=== PATIENT | male | born 1945 | race African-American/Black ===

== ENCOUNTER 2018-08-19 20:02 | Emergency (ER) | payer OTHER ==
[~2018-08-19] VITALS: Ht 157.5 cm; Wt 46.7 kg
[~2018-08-19 20:02] MED LIST: ACYCLOVIR 400400 MG PO; ADULT LOW DOSE81 MG PO; ALENDRONATE SOD70 MG; ALENDRONATE SODIUM PO; ALLOPURINOL 30300 M1 PO; ANASPAZ0.125 MG SL; APAP500 PO; APAP650 PO; ARICEPT 5 MG TAB5 MG PO; ARTIFICIAL TEAR15 M1 OPHTHALMIC; BACTRIM DS TAB1 EACH PO; BELLADONNA-OPI1 EACH; BENTYL20 MG PO; CARBIDOPA-LEVO1 EAC2 PO; CARBIDOPA-LEVO1 EAC6 PO; CARISOPRODOL 3350 MG PO; CEFTAZIDIME IV; CEFUROXIME500 MG PO; CIPRO500 MG PO; CIPROFLOXACIN500 M1 PO; CLONAZEPAM 0.50.5 M1 PO; CLONAZEPAM 1 MG1 M1 PO; CLONAZEPAM PO; COLACE100 MG PO; COMPAZINE10 MG PO; COQ1050 MG PO; COUMADIN 2 MG TA2 M1 PO; COUMADIN 3 MG TA3 M1 PO; COUMADIN 5 MG TA5 M1 PO; COUMADIN6 MG PO; D3 + K2 DOTS 11 EACH PO; DEXAMETHASONE 44 M1 PO; DEXAMETHASONE4 MG PO; DIAZEPAM 10 MG10 M1 PO; DOLOPHINE HCL10 MG PO; DOLOPHINE HCL5 MG PO; DULCOLAX5 MG PO; DURAGESIC1 EAC2 TRANSDERM; ENOXAPARIN40 MG/0.1 SUBQ; ENOXAPARIN80 MG/0.1 INJECTION; ENOXAPARIN80 MG/0.8 SQ; EX-LAX15 M1 PO; FERREX 150 PLU1 EAC1 PO; FIBERCON625 M1 PO; FLEXERIL PO; FOSAMAX 70 MG T70 MG PO; FUROSEMIDE 20 M20 MG PO; HEMORRHOIDAL HC25 MG RC; HYDROCODONE-AP1 EAC6 PO; HYOSCYAMINE0.375 MG; IPRAT-ALBUT 0.5-3 ML INH; KEFLEX500 M1 PO; KEFLEX500 MG PO; KLOR-CON 1010 MEQ PO; LASIX 20 MG TAB20 MG PO; LEVAQUIN 500 M500 MG PO; LEVSIN0.125 MG PO; LEXAPRO 10 MG T10 M1 PO; LEXAPRO 10 MG T10 M2 PO; LIDOCAINE HCL 210 M1 TOP; MACROBID 100 M100 M1 PO; MAXIPIME 2 GM AD2 GM IV; MELATIN3 MG; METHADONE HCL 110 M1 PO; MIRALAX255 GM PO; NEBULIZER MISCELL; NEURONTIN 300300 M1 PO; NITROGLYCERIN0.4 MG SL; NORCO 5-325 TA1 EACH PO; OMEPRAZOLE40 MG PO; ONDANSETRON HCL4 M2 PO; ONDANSETRON ODT8 MG PO; OXYBUTYNIN 5 MG5 M2 PO; PAMIDRONATE; PERCOCET 5-3251 EACH PO; PHENAZOPYRIDIN200 M2; PREDNISONE 10 M10 MG PO; PRILOSEC40 MG PO; PROCHLORPERAZIN10 MG PO; PROCTOCREAM-HC30 G1 RC; PYRIDIUM200 MG PO; REFRESH CELLUVI1 APP OPHTHALMIC; REFRESH CLASSI1 EACH OPHTHALMIC; REQUIP3 MG PO; REVLIMID25 MG PO; ROBAXIN 750 MG750 M1 PO; SEROQUEL 25 MG25 M1 PO; SINEMET 25-1001 EAC1 PO; SINEMET CR 50/21 TAB PO; TAMSULOSIN HCL0.4 M1 PO; TRAZODONE HCL50 MG PO; TRIHEXYPHENIDYL2 M2 NG; TRIHEXYPHENIDYL2 M2 PO; TUMS PO; URIBEL CAPSULE1 EACH PO; VALIUM2 MG PO; VITAMIN B-2100 MG PO; VITAMIN D1000 UNI1 PO; VITAMIN D250000 UNIT PO; VITAMIN D31000 UNI2; VITAMIN D31000 UNI2 PO; WARFARIN PO; ZANAFLEX4 M1; ZANTAC 150MG T150 MG PO; ZOLPIDEM TART12.5 MG PO; ZONISAMIDE 100100 M1 PO; [UNRECOGNIZED DRUG - REMARK]
[2018-08-19 21:06] LABS: ABSOLUTE NEUTROPHILS 3.4 thou/uL (1.4-8.2); BASOPHILS 0.9 % (0.0-2.0); EOSINOPHILS 1.9 % (0.0-3.0); HEMATOCRIT 24.7 % (42.0-52.0); HEMOGLOBIN 8.2 gm/dL (14.0-18.0); LYMPHOCYTES 19.3 % (24.0-44.0); MCH 34.4 pg (26.0-34.0); MCHC 33.4 g/dL (28.0-37.0); MCV 103.2 fL (80.0-100.0); PLATELET COUNT 353 thou/uL (150-400); POLYS 70.9 % (36.0-66.0); RBC 2.39 mil/uL (4.50-6.00); WBC 4.8 thou/uL (4.0-11.0)
[2018-08-19] MEDS ORDERED: SEROQUEL 25 MG25 M1 PO (21:06)
[2018-08-19] MEDS ORDERED: COUMADIN 5 MG TA5 M1 PO (21:06)
[2018-08-19 21:16] LABS: ANION GAP 8 mmol/L (7-16); BUN 26 mg/dL (7-18); CALCIUM 8.7 mg/dL (8.5-10.1); CHLORIDE 104 mmol/L (98-107); CO2 26 mmol/L (21-32); CREATININE 2.2 mg/dL (0.7-1.3); GLUCOSE 110 mg/dL (74-106); POTASSIUM 5.3 mmol/L (3.5-5.1); SODIUM 138 mmol/L (136-145)
[2018-08-19 21:22] LABS: ALBUMIN 2.9 g/dL (3.4-5.0); DIRECT BILIRUBIN < 0.1 mg/dL (<0.1-0.3); LIPASE 45 U/L (73-393); SGOT 13 U/L (15-37); SGPT 7 U/L (30-65); TOTAL BILIRUBIN 0.1 mg/dL (<0.1-1.0); TOTAL PROTEIN 9.2 g/dL (6.4-8.2)
[2018-08-19 21:27] LABS: URINE BILIRUBIN NEGATIVE (Negative); URINE BLOOD 2+ (Negative); URINE CLARITY CLOUDY; URINE COLOR YELLOW; URINE GLUCOSE-RANDOM* NEGATIVE (Negative); URINE KETONES NEGATIVE (Negative); URINE LEUKOCYTES 2+ (Negative); URINE NITRITE POSITIVE (Negative); URINE PROTEIN (DIPSTICK) 2+ (Negative); URINE SPECIFIC GRAVITY >= 1.030 (1.005-1.035); URINE UROBILINOGEN 0.2 E.U./dl (0.2-1.0)
[2018-08-19 21:37] LABS: HYALINE CASTS 0-3 Few /LPF (None Seen); MUCUS 0-3 Light strn/LPF (None Seen); SQUAMOUS 0-3 Few /LPF (0-3)
[2018-08-19 21:38] LABS: BACTERIA >30 Many /HPF (None Seen); CRYSTALS None Seen /LPF (None Seen); TRANSITIONAL EPITHEL CELL 0-3 Few /LPF (None Seen); URINE RBC 3-10 Few /HPF (0-2); URINE WBC >25 Many /HPF (0-5)
[2018-08-19] MEDS ORDERED: KEFLEX500 M1 PO (21:55)
[2018-08-19 22:56] VITALS: BP 143/72
== END 2018-08-19 22:58 | disposition home or self-care (01) ==
LOC: ER 20:02
PROVIDERS: Nurse Practitioner
DX: G89.29 Other chronic pain (principal); M25.551 Pain in right hip; M25.552 Pain in left hip; R07.81 Pleurodynia; G20 Parkinson's disease; M81.0 Age-related osteoporosis without current pathological fracture; G47.30 Sleep apnea, unspecified; Z86.718 Personal history of other venous thrombosis and embolism; Z86.711 Personal history of pulmonary embolism; Z85.79 Personal history of other malignant neoplasms of lymphoid, hematopoietic and related tissues; Z89.022 Acquired absence of left finger(s); Z88.0 Allergy status to penicillin; Z91.040 Latex allergy status

== ENCOUNTER 2018-10-19 10:05 | Emergency (ER) | payer OTHER ==
[~2018-10-19] VITALS: Ht 157.5 cm; Wt 54.4 kg
[2018-10-19 11:00] LABS: CALCIUM 9.2 mg/dL (8.5-10.1); CREATININE 1.7 mg/dL (0.7-1.3); POTASSIUM 5.4 mmol/L (3.5-5.1)
[2018-10-19 11:04] LABS: HEMATOCRIT 25.4 % (42.0-52.0); HEMOGLOBIN 8.4 gm/dL (14.0-18.0); MCH 33.9 pg (26.0-34.0); MCHC 32.9 g/dL (28.0-37.0); PLATELET COUNT 299 thou/uL (150-400); RBC 2.46 mil/uL (4.50-6.00); WBC 2.3 thou/uL (4.0-11.0)
[2018-10-19 11:06] LABS: TOTAL BILIRUBIN 0.1 mg/dL (<0.1-1.0); TOTAL PROTEIN 9.5 g/dL (6.4-8.2)
[2018-10-19 11:46] LABS: INR 1.7; PROTIME 17.9 Seconds (9.3-11.4)
[2018-10-19 11:48] LABS: ABSOLUTE NEUTROPHILS 1.3 thou/uL (1.4-8.2); PLATELET ESTIMATE NORMAL
[2018-10-19 12:10] VITALS: BP 110/44
--- NOTE | 2018-10-19 13:48 | EKG ---
[place] [address] [facility] [place] [address] ELECTROCARDIOGRAM REPORT Name: ASHWINI BAUM ALFREDO [id number] Admission: 10/19/18 Attend Phys: Discharge: 10/19/18 Date of : 43 Report #: [id number] THIS REPORT FOR: //name// [facility] ED Test Date: 2018-10-19 Test Time: 12:31:02 Pat Name: ASHWINI BAUM Department: Room: Gender: Expander: jlambertz : 1945 Requested By: Tracy Nunez Order Number: [id number] MD: Rocael Estrella Measurements Intervals [place] Rate: 52 P: 23 MA: 156 QRS: 15 QRSD: 115 T: 49 QT: 434 QTc: 404 Interpretive Statements Sinus rhythm Nonspecific intraventricular conduction delay Low voltage, extremity leads Artifact in lead(s) I,III,aVR,aVL,aVF,V1,V2 No previous ECG available for comparison Electronically Signed On 10-19-2018 13:48:38 CDT by Rocael Estrella [email or web address] <ELECTRONICALLY SIGNED> By: Rocael Estrella MD 10/19/18 1348 123 123 Rocael Estrella MD /RANDAL
== END 2018-10-19 12:10 | disposition home or self-care (01) ==
LOC: ER 10:05
PROVIDERS: Emergency Medicine; Nurse Practitioner Family
DX: E87.5 Hyperkalemia (principal); R79.1 Abnormal coagulation profile; N18.3 Chronic kidney disease, stage 3 (moderate); F32.9 Major depressive disorder, single episode, unspecified; F41.9 Anxiety disorder, unspecified; G20 Parkinson's disease; M81.0 Age-related osteoporosis without current pathological fracture; G47.30 Sleep apnea, unspecified; G89.29 Other chronic pain; M54.9 Dorsalgia, unspecified; Z90.79 Acquired absence of other genital organ(s); Z85.79 Personal history of other malignant neoplasms of lymphoid, hematopoietic and related tissues; Z98.890 Other specified postprocedural states; Z86.718 Personal history of other venous thrombosis and embolism; Z86.711 Personal history of pulmonary embolism; Z89.022 Acquired absence of left finger(s); Z88.0 Allergy status to penicillin; Z91.040 Latex allergy status

== ENCOUNTER 2018-11-16 17:28 | Emergency (ER) | payer OTHER ==
[~2018-11-16] VITALS: Ht 162.6 cm; Wt 49.9 kg
[2018-11-16 17:52] LABS: ABSOLUTE NEUTROPHILS 2.9 thou/uL (1.4-8.2); BASOPHILS 0.5 % (0.0-2.0); EOSINOPHILS 3.7 % (0.0-3.0); HEMATOCRIT 25.4 % (42.0-52.0); HEMOGLOBIN 8.3 gm/dL (14.0-18.0); LYMPHOCYTES 21.8 % (24.0-44.0); MCHC 32.7 g/dL (28.0-37.0); MCV 104.2 fL (80.0-100.0); MONOCYTES 8.5 % (1.0-8.0); PLATELET COUNT 354 thou/uL (150-400); POLYS 65.5 % (36.0-66.0); RBC 2.44 mil/uL (4.50-6.00); RDW 15.9 % (10.5-14.5); WBC 4.4 thou/uL (4.0-11.0)
[2018-11-16 17:55] LABS: ANION GAP 7 mmol/L (7-16); BUN 27 mg/dL (7-18); CHLORIDE 103 mmol/L (98-107); CO2 26 mmol/L (21-32); CREATININE 1.8 mg/dL (0.7-1.3); GLUCOSE 124 mg/dL (74-106); POTASSIUM 4.7 mmol/L (3.5-5.1); SODIUM 136 mmol/L (136-145)
[2018-11-16 18:01] LABS: ALBUMIN 2.8 g/dL (3.4-5.0); SGOT 16 U/L (15-37); TOTAL BILIRUBIN 0.1 mg/dL (<0.1-1.0)
[2018-11-16 18:11] LABS: SGPT < 6 U/L (30-65)
[2018-11-16] MEDS ORDERED: LIDOCAINE1 EACH TRANSDERM (20:00)
[2018-11-16 21:25] VITALS: BP 161/71
== END 2018-11-16 21:27 | disposition home or self-care (01) ==
LOC: ER 17:28
PROVIDERS: Emergency Medicine
DX: C90.00 Multiple myeloma not having achieved remission (principal); R07.81 Pleurodynia; G20 Parkinson's disease; M81.0 Age-related osteoporosis without current pathological fracture; M54.9 Dorsalgia, unspecified; G89.29 Other chronic pain; G47.30 Sleep apnea, unspecified; F41.9 Anxiety disorder, unspecified; F32.9 Major depressive disorder, single episode, unspecified; Z88.0 Allergy status to penicillin; Z91.040 Latex allergy status; Z86.718 Personal history of other venous thrombosis and embolism

== ENCOUNTER 2019-03-30 19:08 | Inpatient (IN) | payer OTHER ==
[~2019-03-30] VITALS: Ht 157.5 cm; Wt 53.5 kg
[~2019-03-30 19:08] MED LIST changes: +LIDOCAINE1 EACH TRANSDERM
[2019-03-30 19:12] VITALS: BP 129/47
[2019-03-30 19:46] LABS: ABSOLUTE NEUTROPHILS 3.1 thou/uL (1.4-8.2); BASOPHILS 0.1 % (0.0-2.0); EOSINOPHILS 1.4 % (0.0-3.0); HEMATOCRIT 21.9 % (42.0-52.0); LYMPHOCYTES 21.2 % (24.0-44.0); MCH 32.8 pg (26.0-34.0); MCHC 31.4 g/dL (28.0-37.0); MCV 104.3 fL (80.0-100.0); MONOCYTES 3.9 % (1.0-8.0); PLATELET COUNT 269 thou/uL (150-400); POLYS 73.4 % (36.0-66.0); RDW 16.7 % (10.5-14.5); WBC 4.3 thou/uL (4.0-11.0)
[2019-03-30 19:49] LABS: HEMOGLOBIN 6.9 gm/dL (14.0-18.0)
[2019-03-30 19:56] LABS: INR 1.9; PROTIME 19.5 Seconds (9.3-11.4)
[2019-03-30 20:01] LABS: CALCIUM 9.3 mg/dL (8.5-10.1); CREATININE 1.5 mg/dL (0.7-1.3)
--- NOTE | 2019-03-30 20:05 | NUR ---
LAB CALLED A CRITICAL ON PT'S HEMOGLOBIN, 6.9
[2019-03-30 20:23] LABS: ANISOCYTOSIS 1+; MACROCYTES 1+
[2019-03-30 20:56] VITALS: BP 129/47
[2019-03-30 21:04] VITALS: BP 142/55
[2019-03-30 22:42] VITALS: BP 148/58
[2019-03-30 22:56] VITALS: BP 178/72
[2019-03-31 00:21] VITALS: BP 147/56
--- NOTE | 2019-03-31 02:50 | NUR ---
PATIENT AOX4 MAKES NEEDS KNOWN. PATIENT ADMITTED FOR LOW HGB OF 6.9, 1 UNIT STARTED IN THE ER. TRANSFUSION ENDED AT 0015, VITAL SIGNS WNL AND CHARTED ON [employer].PATIENT TOLERATED TRANSFUSION WELL.SCD ON. PATIENT OFFERED DINNER. PATIENT IS ON THICKEN LIQUIDS. SPOUSE AT BEDSIDE DURING ASSESSMENT. PATIENT HAS A SUPRA PUBIC CATH, CATH CARE DONE THIS SHIFT.PATIENT DENIED PAIN OR DISCOMFORT. FALL PRECAUTION IN PLACE. CALL LIGHT AND PERSONAL ITEMS WITHIN REACH. PATIENT IN BED ASLEEP AT THIS TIME BREATHING REGULAR AND UNLABOURED.
[2019-03-31 04:00] VITALS: BP 147/56
[2019-03-31 05:12] LABS: HEMATOCRIT 23.5 % (42.0-52.0); HEMOGLOBIN 7.5 gm/dL (14.0-18.0); MCH 32.5 pg (26.0-34.0); MCHC 31.9 g/dL (28.0-37.0); MCV 101.7 fL (80.0-100.0); RBC 2.31 mil/uL (4.50-6.00)
[2019-03-31 05:36] LABS: CALCIUM 9.1 mg/dL (8.5-10.1); CREATININE 1.4 mg/dL (0.7-1.3); POTASSIUM 4.6 mmol/L (3.5-5.1)
[2019-03-31 07:54] VITALS: BP 159/60
[2019-03-31 11:13] VITALS: BP 159/60
--- NOTE | 2019-03-31 11:32 | NUR ---
Assumed pt care this am, VS are stable. is at the bedside. Suprapubic catheter in place and patent draining yellow urine. Diet is well tolerated and kept on honey thick liquids. Hgb at 7.5 today. POC followed no signs or verbalizatons of distress have been noted. DC orders orders in, instructions given to the spouse. IV removed, pt will leave after lunch with spouse.
== END 2019-03-31 13:56 | disposition home or self-care (01) | DRG 812 ==
LOC: ER 19:08 → EROBS 20:47 → 4W 20:47
PROVIDERS: Emergency Medicine; Nurse Practitioner Family; ADMIT Hospitalist
PROC: 30233N1 Transfusion of Nonautologous Red Blood Cells into Peripheral Vein, Percutaneous Approach (ICD-10-PCS; principal; 2019-03-30)
DX: D64.9 Anemia, unspecified (principal); G20 Parkinson's disease; M81.0 Age-related osteoporosis without current pathological fracture; M54.9 Dorsalgia, unspecified; Z96.0 Presence of urogenital implants; G89.29 Other chronic pain; N18.3 Chronic kidney disease, stage 3 (moderate); G47.30 Sleep apnea, unspecified; Z96.9 Presence of functional implant, unspecified; F41.9 Anxiety disorder, unspecified; F32.9 Major depressive disorder, single episode, unspecified; Z89.022 Acquired absence of left finger(s); Z87.891 Personal history of nicotine dependence; Z85.79 Personal history of other malignant neoplasms of lymphoid, hematopoietic and related tissues; Z92.21 Personal history of antineoplastic chemotherapy; Z79.01 Long term (current) use of anticoagulants; Z86.711 Personal history of pulmonary embolism; Z92.3 Personal history of irradiation; Z86.718 Personal history of other venous thrombosis and embolism; Z79.82 Long term (current) use of aspirin; Z79.899 Other long term (current) drug therapy; Z79.891 Long term (current) use of opiate analgesic; Z88.0 Allergy status to penicillin; Z91.040 Latex allergy status; Z85.51 Personal history of malignant neoplasm of bladder; Z80.9 Family history of malignant neoplasm, unspecified; Z98.1 Arthrodesis status
CPT/HCPCS: 10040

== ENCOUNTER 2019-08-23 20:49 | Emergency (ER) | payer OTHER ==
[~2019-08-23] VITALS: Ht 162.6 cm; Wt 68.0 kg
[2019-08-23] MEDS ORDERED: LIDOCAINE PAIN1 EACH TOP (21:56)
[2019-08-23 23:05] VITALS: BP 152/68
== END 2019-08-23 22:02 | disposition home or self-care (01) ==
LOC: ER 20:49
DX: S22.20XA Unspecified fracture of sternum, initial encounter for closed fracture (principal); N18.3 Chronic kidney disease, stage 3 (moderate); Z86.2 Personal history of diseases of the blood and blood-forming organs and certain disorders involving the immune mechanism; Z87.891 Personal history of nicotine dependence; Z88.0 Allergy status to penicillin; Z91.040 Latex allergy status; Z79.899 Other long term (current) drug therapy; Z79.82 Long term (current) use of aspirin; W18.39XA Other fall on same level, initial encounter; Y93.89 Activity, other specified; Y92.89 Other specified places as the place of occurrence of the external cause; Y99.8 Other external cause status

== ENCOUNTER 2019-12-25 12:59 | Inpatient (IN) | payer OTHER ==
[~2019-12-25] VITALS: Ht 157.5 cm; Wt 54.6 kg
[~2019-12-25 12:59] MED LIST changes: -ARTIFICIAL TEAR15 M1 OPHTHALMIC; +ARTIFICIAL TEAR1510 OPHTHALMIC; +LIDOCAINE PAIN1 EACH TOP
[2019-12-25 13:03] VITALS: BP 145/62
[2019-12-25 13:27] LABS: BE(vivo) 2.8 mmol/L (-2 to +3); HCO3 27.3 mmol/L (22.0-26.0); PO2 60.2 mmHg (80.0-100.0); pH 7.431 (7.360-7.450); sO2 91.7 % (92.0-98.0)
[2019-12-25 13:58] LABS: URINE BILIRUBIN NEGATIVE (Negative); URINE BLOOD 2+ (Negative); URINE CLARITY CLEAR; URINE COLOR YELLOW; URINE GLUCOSE-RANDOM* NEGATIVE (Negative); URINE KETONES NEGATIVE (Negative); URINE PROTEIN (DIPSTICK) 2+ (Negative); URINE SPECIFIC GRAVITY 1.015 (1.005-1.035); URINE UROBILINOGEN 0.2 E.U./dl (0.2-1.0)
[2019-12-25 13:59] LABS: URINE LEUKOCYTES-REFLEX 1+ (Negative); URINE NITRITE-REFLEX POSITIVE (Negative)
[2019-12-25 13:59] LABS: ABSOLUTE NEUTROPHILS 1.1 thou/uL (1.4-8.2); POLYS 81.8 % (36.0-66.0); RBC 1.84 mil/uL (4.50-6.00)
[2019-12-25 14:00] LABS: BASOPHILS 0.2 % (0.0-2.0); EOSINOPHILS 0.2 % (0.0-3.0); HEMATOCRIT 20.1 % (42.0-52.0); LYMPHOCYTES 14.7 % (24.0-44.0); MCH 33.7 pg (26.0-34.0); MCHC 30.9 g/dL (28.0-37.0); MCV 109.1 fL (80.0-100.0); MONOCYTES 3.1 % (1.0-8.0); PLATELET COUNT 234 thou/uL (150-400); RDW 16.6 % (10.5-14.5)
[2019-12-25 14:04] LABS: HEMOGLOBIN 6.2 gm/dL (14.0-18.0); WBC 1.3 thou/uL (4.0-11.0)
[2019-12-25 14:09] LABS: BACTERIA-REFLEX >30 Many /HPF (None Seen); CASTS None Seen /LPF (None Seen); SQUAMOUS 4-10 Moderate /LPF (0-3)
[2019-12-25 14:10] LABS: CRYSTALS None Seen /LPF (None Seen); URINE RBC 0-2 Rare /HPF (0-2); URINE WBC-REFLEX 6-15 Few /HPF (0-5)
[2019-12-25 14:12] LABS: ANION GAP 9 mmol/L (7-16); BUN 37 mg/dL (7-18); CALCIUM 9.2 mg/dL (8.5-10.1); CHLORIDE 107 mmol/L (98-107); CO2 28 mmol/L (21-32); CREATININE 1.9 mg/dL (0.7-1.3); GLUCOSE 144 mg/dL (74-106); POTASSIUM 3.9 mmol/L (3.5-5.1); SODIUM 144 mmol/L (136-145)
[2019-12-25 14:33] LABS: ANISOCYTOSIS 2+; MACROCYTES 1+; POLYCHROMASIA OCCASIONAL
[2019-12-25 14:40] LABS: MAGNESIUM 1.9 mg/dL (1.8-2.4); TROPONIN-I <0.06 ng/mL (<0.06)
--- NOTE | 2019-12-25 15:00 | EKG ---
[facility] [place] [address] ELECTROCARDIOGRAM REPORT Name: ASHWINI BAUM Room #: REG [facility]#: [id number] Admission: 12/25/19 Attend Phys: Discharge: Date of : 43 Report #: [id number] THIS REPORT FOR: cc: Ayad Walton MD, David L. MD Santiago, Patrick MD [facility] ~ THIS REPORT FOR: //name// [facility] ED Test Date: 2019-12-25 Test Time: 14:01:05 Pat Name: ASHWINI BAUM Department: Room: Gender: Shield Installer: no : 1945 Requested By: León Mccain Order Number: [id number] : Bj Hernandez Measurements Intervals [place] Rate: 74 P: -7 OR: 145 QRS: 14 QRSD: 71 T: 74 QT: 532 QTc: 591 Interpretive Statements Sinus rhythm Low voltage, extremity leads Prolonged QT interval Compared to ECG 10/19/2018 12:31:02 Prolonged QT interval now present Intraventricular conduction delay no longer present Electronically Signed On 12-25-2019 15:00:09 CDT by Bj Hernandez [email or web address] <ELECTRONICALLY SIGNED> By: Bj Hernandez MD, FACC 12/25/19 1500 00 140 Bj Hernandez MD, FACC /EPI
[2019-12-25 16:29] VITALS: BP 136/62
[2019-12-25 16:37] VITALS: BP 140/63
--- NOTE | 2019-12-25 19:32 | NUR ---
PATIENT ADMNITTED TO ROOM AT THIS TIME. RESPIRAITONS ARE NOT LABORED WHILE RESTING. ON O2 VIA NC. WEAK AND REQUIRES TOTAL CARE.
[2019-12-25 20:43] VITALS: BP 137/67
[2019-12-25] MEDS ORDERED: VITAMIN B-121000 MC2 PO (23:00)
[2019-12-25] MEDS ORDERED: LEVO-T50 MCG PO (23:01)
[2019-12-25] MEDS ORDERED: VENELEX OINTMEN60 GM (23:06)
[2019-12-25] MEDS ORDERED: TYLENOL EXTRA500 MG PO (23:41)
[2019-12-26] VITALS (7 sets, daily range): BP systolic 121–154; BP diastolic 48–75
[2019-12-26] MEDS ORDERED: vitamin d PO (02:27)
[2019-12-26 06:26] LABS: MCH 34.5 pg (26.0-34.0)
[2019-12-26 06:29] LABS: MCHC 31.5 g/dL (28.0-37.0); MCV 109.4 fL (80.0-100.0); RBC 1.58 mil/uL (4.50-6.00); RDW 16.4 % (10.5-14.5)
[2019-12-26 06:30] LABS: CALCIUM 8.9 mg/dL (8.5-10.1); CREATININE 1.6 mg/dL (0.7-1.3); POTASSIUM 3.7 mmol/L (3.5-5.1)
[2019-12-26 06:42] LABS: HEMATOCRIT 17.3 % (42.0-52.0); HEMOGLOBIN 5.5 gm/dL (14.0-18.0)
--- NOTE | 2019-12-26 07:15 | NUR ---
Arrived on the floor around 1730. Adm hx , assessment and med rec completed at . Verified home meds with . Consults to Dr.D. Omledo and Dr. Farnsworth called. MRSA swab and stool for OB sent to lab. RT titrated O2 down from 6L to 4L at beginning of shift and has maintained O2 sat in the mid to upper 90's. No respiratory distress. Cont. on enhanced precaution to R/O COVID. Negative PCR reported to HOTEL RESERVATION AGENT and house repairer. He has been afebrile. Repositioned for comfort. Bed alarm on and SCD's applied.Critical hgb 5.5 reported to HOTEL RESERVATION AGENT this am. Dr. Foreman also notified who ordered 1 unit packed cell transfusion. report to day RN.
[2019-12-26 08:39] LABS: OBSERVED RETIC COUNT 1.71 % (0.6-2.6)
[2019-12-26 08:43] LABS: % SATURATION 7 % (20-39); IRON 9 ug/dL (65-175); TIBC 134 ug/dL (250-450)
--- NOTE | 2019-12-26 09:24 | NUR ---
TALKED WITH KAIDEN ON THE PHONE. CONSENT FOR BLOOD OBTAINED WITH VERBAL CONSENT FROM , NEHEMIAH.
--- NOTE | 2019-12-26 10:22 | NUR ---
Patient admits to 3W Covid rule out. He admits with sepsis,resp failure. He has one COVID negative test. Attempted to call room, no answer. Sp with patients . Patient resides in home with spouse and dtr. he has steps in home but reports they plan on moving, and at new home 6 steps to enter. Patient with hx of Parkinsons and uses a walker. Has a shower chair. He has breakdown near tailbone and uses pads [facility] by [facility] for cushion in chairs. He has a nebulizer but no oxygen at home currently on 4 liters in hospital. He has JACKIE RN monthly for catheter care. PCP was Dr William who has left. New PCP in same grp is Dr Lancaster but has seen new PCP as of yet. Patient has hx of skilled rehab care [facility] [place] and [facility]. reports not good experience at [facility]. [place] [address] [place] [facility]. reports patient with confusion. Staff needed to take the phone as he was calling 911. Updated [facility] who will accept patient for return. Casemgt following for dc planning.
--- NOTE | 2019-12-26 17:06 | NUR ---
TALKED WITH KAIDEN ON HE PHONE. PHONE CALL TRANSFERRED INTO PT TO BE ABLE TO TALK WITH HER.
[2019-12-27 03:02] LABS: HEMOGLOBIN 7.3 gm/dL (14.0-18.0); MCH 33.2 pg (26.0-34.0); MCHC 31.8 g/dL (28.0-37.0); MCV 104.6 fL (80.0-100.0); RBC 2.2 mil/uL (4.50-6.00); RDW 17.3 % (10.5-14.5); WBC 7.2 thou/uL (4.0-11.0)
[2019-12-27 03:39] LABS: CALCIUM 8.6 mg/dL (8.5-10.1); CREATININE 1.4 mg/dL (0.7-1.3); POTASSIUM 4.1 mmol/L (3.5-5.1)
[2019-12-27 04:15] VITALS: BP 157/78
--- NOTE | 2019-12-27 04:55 | NUR ---
Pt. slept better last night. Able to answer orientation questions though forgetful at times. O2 sat has been in the upper 90's to 100%. O2 titrated down from 4L/NC to 3L/NC at HS then 2L/NC this am. Rt notified. No respiratory distress. Off isolation , afebrile. Repositioned prn for comfort. No active bleeding seen. Making progress towardsa care plan goals.
[2019-12-27 07:26] VITALS: BP 177/90
--- NOTE | 2019-12-27 07:36 | HC ---
[facility] [place] [address] CONSULTATION Name: ASHWINI BAUM Room #: 362-P ADM IN M.R.#: [id number] Admission: 12/25/19 Attend Phys: Ab Noonan MD Discharge: Date of : 43 Report #: [id number] THIS REPORT FOR: cc: Ayad Walton MD, David L. MD McKittrick, Richard James MD ~ DATE OF SERVICE: 12/26/2019 REQUESTING PHYSICIAN: Ab Noonan MD REASON FOR CONSULTATION: History of multiple myeloma. HISTORY OF PRESENT ILLNESS: The patient is a 74-year-old male, followed by Dr. Raghu Garcia in my group for a large number of years with a history of untreated multiple myeloma. They have chosen not to treat ____ multiple other medical conditions and fairly stable paraprotein over several years where he has had a worsening anemia. The patient denies any symptoms other than some abdominal discomfort though I am not sure he is a reliable historian. Per the chart, the patient was brought in by his because he thought the patient was declining from his Parkinson's. He has been having less trouble with eating and more weak and has lost more weight. He also had a cough. He describes some pelvic/suprapubic discomfort. Note that EMS had noted an O2 saturation in 70s when first evaluated. In the ED, his white count was 1.3, hemoglobin 6.2. Note also his urine was positive for nitrites and a chest x-ray may have pneumonia. SOCIAL HISTORY: Noncontributory at this time. Not a recent smoker or drinker. No street drugs. FAMILY HISTORY: Not available at this time. PAST HISTORY: Appears to be notable for the history of the IgG multiple myeloma, untreated for large number of years; also history of bladder cancer in the past; history of Parkinson's with a brain stimulator, on oral medications; history of chronic kidney disease; history of anemia; history of recurrent UTIs; history of suprapubic catheter; history of brain stimulator for his Parkinson's; history of weakness; history of chronic back pain. MEDICATIONS: At this time include oxybutynin 5 mg daily; cholecalciferol 2000 units daily; escitalopram 20 mg daily; vancomycin 500 mg q. 12 IV; also meropenem 1 gram b.i.d.; donepezil 10 mg at bedtime; ipratropium/albuterol 3 mL respiratory therapy q. 4; carbidopa/levodopa ____ tabs at 7:00 and 11:00, 1500 and 1900; ____ eyedrops; methadone 10 mg q. 8 hours p.r.n.; MiraLax [address] [address] CONSULTATION Name: ASHWINI BAUM Room #: 362-P [facility] IN M.R.#: [id number] Admission: 12/25/19 Attend Phys: Ab Noonan MD Discharge: Date of : 43 Report #: [id number] daily p.r.n.; IV fluids; Tylenol p.r.n.; Zofran p.r.n. PHYSICAL EXAMINATION: GENERAL: The patient appears his stated age. VITAL SIGNS: Reported height is variable at 5 feet 4, 5 feet 7 and 5 feet 2, which would be a centimeter range of 157.5, 162.56 and 170.18 with a weight of around 119 pounds or 54.3 kilograms. Blood pressure is 135/59, O2 sat 95%, respirations 20, pulse 74, afebrile at 97.9. MOOD: The patient is pleasant and appears to be paying attention. NEUROLOGIC: Speech and thought pattern are slow, but appears to be appropriate. I am not sure his level of understanding on in-depth questions. LYMPHATICS: No enlarged lymph nodes in the supraclavicular, cervical, axillary or inguinal region. LUNGS: Clear anteriorly, there may be perhaps some very soft central rhonchi, but no stridor, rales or wheezes. HEART: Regular rate. ABDOMEN: Scaphoid, no organomegaly. EXTREMITIES: Without clubbing or cyanosis. Note there has been evidence of noted amputations of fingers and several other appendages. Also, the patient has a suprapubic catheter in place. The patient does have several bumps on his scalp consistent with the brain stimulator. LABORATORY REVIEW: Notable for creatinine of 1.6, was 1.9 yesterday. Liver function is not checked on this admit. Lactic acid 2.6 on admit, 1.3 currently. White count was 1.3, today 3.0. Hemoglobin was 6.2, after hydration 5.5, to receive a transfusion. Note that back in past years, his hemoglobin has been between 8.2 and 8.3 range. MCV 109.1, note that in the past it was 103. As above, we will check B12, folate. We will also check a thyroid. RDW of 16.4. Platelets 197. Differential, some slight left swinging. COVID antigen negative. UA was nitrite positive with many bacteria. Imaging done this admission included a chest x-ray which has a history of perihilar basilar infiltrates with some consolidation compatible with pneumonitis. ASSESSMENT AND PLAN: 1. IgG multiple myeloma, untreated. The patient has been fairly stable per outpatient notes and was deemed to be too frail to tolerate therapy, could revisit again as outpatient with Dr. Garcia after discharge. 2. Anemia of undetermined etiology with creatinine of 1.6 and also it is macrocytic. We will check iron, B12, folate and thyroid. Recheck an erythropoietin level. Transfuse to keep hemoglobin above 7. 3. Neutropenia, improved, may be related to sepsis that may be improving. 4. Pneumonitis and possible urinary tract infection with elevated lactate. [facility] [address] [place] [address] CONSULTATION Name: ASHWINI BAUM Room #: 362-P [facility] IN ..#: [id number] Admission: 12/25/19 Attend Phys: Ab Noonan MD Discharge: Date of : 43 Report #: [id number] Continues on vancomycin and meropenem. Cultures pending. 5. Chronic kidney disease. Creatinine slightly improved at 1.6. 6. Parkinson's disease with brain stimulator. Continue levodopa/carbidopa. 7. Chronic pain, methadone and opiates per others. 8. Reported history of bladder cancer with suprapubic catheter, not known to be recurrent. 9. Possible history of deep vein thrombosis. Given anemia, the patient currently is having anticoagulant. Prophylactic Lovenox held. We will follow with you. <ELECTRONICALLY SIGNED> By: Sudhakar Duque MD 12/27/19 0736 [id number] Sudhakar Duque MD /sandra
--- NOTE | 2019-12-27 15:07 | NUR ---
HERMINIO reviewed chart and spoke with nursing and attending physician. Pt had negative COVID test and Enhanced Isolation has been discontinued. Pt is on O2. [facility] consulted to evaluate pt for admission to in acute rehab. Pt appears to be a good candidate. Awaiting an official acceptance by [facility]. No weekend discharge planned. HERMINIO spoke with pt's via phone to provide update and discuss possible discharge to [facility]. Pt's is agreeable with pt going to [facility]. HERMINIO is following to assist as needed with discharge planning.
[2019-12-27 15:17] VITALS: BP 123/64
--- NOTE | 2019-12-27 17:00 | NUR ---
PATIENT SEEN FOR REHAB CONSULT BY SERA APODACA NP WITH DR. MICHAUD. PATIENT IS A CANDIDATE FOR ACUTE REHAB AND CAN BE ACCEPTED FOR ADMISSION WHEN BED IS AVAILABLE AND PATIENT IS MEDICALLY STABLE. ANTICIPATE ADMISSION MONDAY, DECEMBER 30, 2019.
--- NOTE | 2019-12-27 18:13 | NUR ---
ASSUMED CARE OF PT AT SHIFT CHANGE. ASSESSMENT CHARTED. MEDS GIVEN PER MAY. PT A&OX4, BUT SPEECH IS DIFFICULT TO UNDERSTAND. REMAINS ON 2L NC WITH DISTRESS NOTED. WILL CONTINUE ABX THROUGH WEEKEND, PLAN FOR [facility] ON MONDAY. WILL CONTINUE TO MONITOR AND FOLLOW POC.
[2019-12-27 20:06] VITALS: BP 142/74
[2019-12-28] VITALS (8 sets, daily range): BP systolic 129–146; BP diastolic 67–84
--- NOTE | 2019-12-28 04:01 | NUR ---
PT AOX4 WITH FORGETFULNESS, PT SPEECH DIFFICULT TO UNDERSTAND. PT REPORTS 7/10 BACK PAIN. PT DENIES SOB WITH 3L VIA HIGH FLOW CANNULA. PT RECEIVING PRN PO METHADONE Q8HR WITH PRN PO APAP Q6HR AVAILABLE. PT TOLERATING PO INTAKE OF HONEY THICKENED LIQUIDS WITH MEDICATIONS TAKEN IN APPLESAUCE. PT RESTING IN BED THROUGHOUT SHIFT, FREQUENT REPOSITIONING ENCOURAGED. PT NOTED TO SHIFT INDEPENDENTLY WHILE IN BED. PT SPOKE WITH HIS PRIOR TO GOING TO SLEEP. PT ENCOURAGED TO NOTIFY STAFF FOR ALL NEEDS, CALL LIGHT WITHIN REACH, BED ALARM ON, BED IN LOWEST POSITION, ROOM REMAINS NEAR NURSES STATION, FREQUENT MONITORING WILL CONTINUE.
[2019-12-28 06:07] LABS: ABSOLUTE NEUTROPHILS 7.9 thou/uL (1.4-8.2); BASOPHILS 0.2 % (0.0-2.0); EOSINOPHILS 0.3 % (0.0-3.0); HEMATOCRIT 23.8 % (42.0-52.0); HEMOGLOBIN 7.6 gm/dL (14.0-18.0); LYMPHOCYTES 4.2 % (24.0-44.0); MCH 34.2 pg (26.0-34.0); MCV 107.1 fL (80.0-100.0); MONOCYTES 1.9 % (1.0-8.0); PLATELET COUNT 250 thou/uL (150-400); POLYS 93.4 % (36.0-66.0); RBC 2.22 mil/uL (4.50-6.00); RDW 17.7 % (10.5-14.5); WBC 8.4 thou/uL (4.0-11.0)
[2019-12-28 06:25] LABS: CALCIUM 9.1 mg/dL (8.5-10.1); CREATININE 1.4 mg/dL (0.7-1.3); POTASSIUM 3.8 mmol/L (3.5-5.1)
--- NOTE | 2019-12-28 19:08 | NUR ---
PT CARE ASSUMED AT 0700. ASSESSMENT CHARTED. MEDICATION CHARTED. TAKES PILLS WHOLE BUT IN APPLESAUCE. O2 2 LPM NC. SUPERPUBIC CATHETER. RFA IV. LFA IV. COVID NEGATIVE. PARKINSONS; FORGETFUL; OFTEN HARD TO UNDERSTAND. RENAL DIET; HONEY THICKENED LIQUIDS. UNSTEADY GAIT; ASSIST X 1. SINUS RHYTHM.
--- NOTE | 2019-12-28 19:33 | NUR ---
PT ARRIVED ON UNIT AT 1845. SETTLED PT IN ROOM. GAVE REPORT TO NIGHT NURSE.
[2019-12-29] VITALS (8 sets, daily range): BP systolic 120–145; BP diastolic 53–73
--- NOTE | 2019-12-29 04:56 | NUR ---
ASSESSMENT DOCUMENTED.PT BEEN RESTING IN NO ACUTE DISTRESS.A/OX4 W/SOME FORGETFULNESS.VSS.SR ON MONITOR.SUPRAPUBIC CATHETER TO DD.PT DENIES NEEDS ST THIS TIME.WILL CONT TO MONITOR PER POC
[2019-12-29 05:46] LABS: ALBUMIN 1.7 g/dL (3.4-5.0); CALCIUM 9.1 mg/dL (8.5-10.1); CREATININE 1.3 mg/dL (0.7-1.3); PHOSPHORUS 3.7 mg/dL (2.5-4.9); POTASSIUM 3.4 mmol/L (3.5-5.1)
--- NOTE | 2019-12-29 18:22 | NUR ---
PT CARE ASSUMED AT 0700. ASSESSMENTS CHARTED. MEDICATION CHARTED. PT HAS PARKINSON'S; BRAIN STIMULATOR BILAT HEMISPHERES OF THE HEAD; BATTERY RT CHEST. O2 2LPM NC; 94%. SUPERPUBIC CATHETER. LFA IV; D5W 75 ML/HR. RENAL DIET; HONEY THICKENED LIQUIDS. ASSIST X 1. SINUS RHYTHM. PT WILL TAKE PILLS WHOLE IN APPLESAUCE.
[2019-12-30 04:36] LABS: CALCIUM 8.9 mg/dL (8.5-10.1); CREATININE 1.1 mg/dL (0.7-1.3)
[2019-12-30 04:38] LABS: POTASSIUM 3.7 mmol/L (3.5-5.1)
[2019-12-30 05:45] LABS: HEMATOCRIT 21.2 % (42.0-52.0); HEMOGLOBIN 6.7 gm/dL (14.0-18.0); MCH 33.5 pg (26.0-34.0); RBC 2.01 mil/uL (4.50-6.00)
--- NOTE | 2019-12-30 05:45 | NUR ---
ALERT.REPOSITION Q2 HOURS.MONITOR SHOWS SINUS ARRHYTHMIA.SUPRAPUBIC CATH TO DD.POC CONTINUED.
[2019-12-30 05:48] LABS: MCHC 31.8 g/dL (28.0-37.0); MCV 105.2 fL (80.0-100.0); RDW 16.6 % (10.5-14.5); WBC 4.8 thou/uL (4.0-11.0)
[2019-12-30 05:49] VITALS: BP 119/54
[2019-12-30 12:20] VITALS: BP 132/65
[2019-12-30 14:05] VITALS: BP 119/60
--- NOTE | 2019-12-30 14:46 | NUR ---
Nutrition: Suggest liberalize renal aspect of diet order to 2 gm Na based on current intake trends and labs.
[2019-12-30 15:00] VITALS: BP 131/68; BP 135/70
--- NOTE | 2019-12-30 16:42 | NUR ---
ASSUMED CARE AT CHANGE OF SHIFT. ALERT X2, FORGETFUL, MAX ASSISTANCE TO CHAIR WITH HELP FROM PT. PRN 1-2L NASAL CANNULA. REPOSITIONED TOLERATED. ASSISTANCE WITH MEAL SET UP. TOLERATED MEDS WHOLE ONE AT A TIME WITH APPLESAUCE. TRANSFUSSING 1UNIT OF BLOOD AT THIS TIME. CALL LIGHT AND PERSONAL ITEMS IN REACH. FALL PREACIONS IN PLACE. WILL TRANSFER [address] [place] [address]
== END 2019-12-30 19:28 | DRG 871 ==
LOC: ER 12:59 → EROBS 15:02 → 3W 15:02 → 2N 12-28 18:42
PROVIDERS: Emergency Medicine; Hospitalist; Internal Medicine Hematology & Oncology; ADMIT Hospitalist; ATTEND Hospitalist
PROC: 30233N1 Transfusion of Nonautologous Red Blood Cells into Peripheral Vein, Percutaneous Approach (ICD-10-PCS; principal; 2019-12-26)
DX: A41.9 Sepsis, unspecified organism (principal); J18.9 Pneumonia, unspecified organism; J96.01 Acute respiratory failure with hypoxia; N17.0 Acute kidney failure with tubular necrosis; E43 Unspecified severe protein-calorie malnutrition; T83.518A Infection and inflammatory reaction due to other urinary catheter, initial encounter; N39.0 Urinary tract infection, site not specified; C90.00 Multiple myeloma not having achieved remission; D61.818 Other pancytopenia; D70.9 Neutropenia, unspecified; N18.30 Chronic kidney disease, stage 3 unspecified; M54.9 Dorsalgia, unspecified; M81.0 Age-related osteoporosis without current pathological fracture; F41.9 Anxiety disorder, unspecified; F32.9 Major depressive disorder, single episode, unspecified; G20 Parkinson's disease; G89.4 Chronic pain syndrome; Y83.8 Other surgical procedures as the cause of abnormal reaction of the patient, or of later complication, without mention of misadventure at the time of the procedure; B96.1 Klebsiella pneumoniae [K. pneumoniae] as the cause of diseases classified elsewhere; Z20.828 Contact with and (suspected) exposure to other viral communicable diseases; Z85.51 Personal history of malignant neoplasm of bladder; Z86.718 Personal history of other venous thrombosis and embolism; Z86.711 Personal history of pulmonary embolism; Z79.82 Long term (current) use of aspirin; Z79.899 Other long term (current) drug therapy; Z88.0 Allergy status to penicillin; Z91.040 Latex allergy status; Y92.89 Other specified places as the place of occurrence of the external cause
CPT/HCPCS: 10081; 10879